=== PATIENT | male | born 1955 | race Caucasian/White ===

== ENCOUNTER → 2017-04-16 | Outpatient (CLI) | payer OTHER | END | disposition home or self-care (01) | LOC: GMAM 10:32 | PROVIDERS: ATTEND Family Medicine | DX: R97.20 Elevated prostate specific antigen [PSA] (principal) ==

== ENCOUNTER → 2019-03-29 | Outpatient (CLI) | payer OTHER ==
--- NOTE | 2019-03-29 14:48 | US ---
EXAM DESCRIPTION: Venous,Lower Extremity LT CLINICAL HISTORY: LOWER LIMB EDEMA COMPARISON: None Available. TECHNIQUE: Left lower extremity venous duplex FINDINGS: Doppler evaluation of the left lower extremity deep veins was performed. Normal color flow is seen in the common femoral, superficial femoral, profunda femoral and greater saphenous veins. Normal flow is seen in the popliteal vein and veins below the knee in the calf. Normal venous compressibility and flow augmentation. Edema in the soft tissues of the left lower extremity in the calf. IMPRESSION: Negative for evidence of deep venous thrombosis on left lower extremity venous Doppler sonogram. Electronically signed by: Michael Villanueva MD 03/29/2019 2:46 PM CDT
== END ==
LOC: US 09:03
PROVIDERS: ATTEND Family Medicine
DX: R60.9 Edema, unspecified (principal)

== ENCOUNTER 2020-05-18 23:03 | Observation (INO) | payer MEDICARE ==
[2020-05-18] MEDS ORDERED: METOPROLOL TARTRATE INJ 5 MG/5 ML VIAL IV ONE (23:18)
--- NOTE | 2020-05-18 23:43 | CT ---
EXAM: Head HISTORY: 64 years Male numbness arm COMPARISON: None TECHNIQUE: Contiguous axial images of the head were obtained from the skull base through the vertex without IV contrast followed by multiplanar reformats. This exam was performed according to our departmental dose-optimization program, which includes automated exposure control, adjustment of the mA and/or kV according to patient size and/or use of iterative reconstruction technique. FINDINGS: Brain volume is commensurate with patient age. No hydrocephalus. No midline shift, mass effect or abnormal extraaxial collection. Right anterior temporal pole encephalomalacia. Age-indeterminate hypoattenuation within the right posterior temporoparietal region. Chronic left internal capsule lacunar infarct. Orbital contents are unremarkable. The paranasal sinuses and mastoid air cells are well pneumatized. No acute calvarial abnormality. IMPRESSION: 1. Right posterior temporoparietal hypoattenuation, concerning for age-indeterminate infarct, either subacute or chronic. Recommend MRI for additional characterization. 2. Chronic left external capsule lacunar infarct. 3. Right anterior temporal lobe encephalomalacia. 4. No acute intracranial hemorrhage or mass effect. Electronically signed by: Aydin Acosta MD 05/18/2020 11:41 PM CDT
--- NOTE | 2020-05-18 23:47 | RAD ---
EXAM DESCRIPTION: Chest,1 View CLINICAL HISTORY: 64 years Male htn, left arm tingling COMPARISON: None. FINDINGS: The cardiomediastinal silhouette appears unremarkable. No consolidating infiltrates or pleural effusions. No pneumothorax. IMPRESSION: No acute abnormality is identified. Electronically signed by: Simona Soares MD 05/18/2020 11:46 PM CDT
[2020-05-19] MEDS ORDERED: ASPIRIN TABLET 325 MG TAB PO ONE
[2020-05-19] MEDS ORDERED: INSULIN LISPRO 100 UNITS/ML PEN SUBCU ONE (00:04)
[2020-05-19] MEDS ORDERED: LISINOPRIL 10 MG TAB PO ONE ×2 (01:21→11:09)
--- NOTE | 2020-05-19 01:26 | ED.PDOC ---
History of Present Illness - General Chief Complaint: Blood Pressure Problem Stated Complaint: dizzy, elevated BP Time Seen by Provider: 05/18/20 23:11 Source: patient Exam Limitations: no limitations - History of Present Illness Initial Comments: The patient is a 64-year-old male presented emergency room secondary to symptoms of dizziness along with a moderate headache and tingling in his left upper extremity primarily today. He reports that 3 days ago he had an episode that lasted about 30 minutes with difficulty with speech and with ambulating. It resolved on its own. He denies taking any blood thinners. He does have a cardiac history with apparently 1 stent according to him. He has not been compliant with his insulin recently. He reports that his blood pressures normally run high. He reports that he takes lisinopril at an unknown dose. Timing/Duration: unsure, constant, getting worse Severity: moderate Improving Factors: nothing Worsening Factors: nothing Associated Symptoms: headaches, malaise, weakness Allergies/Adverse Reactions: Allergies NO KNOWN ALLERGY Allergy (Verified 05/19/20 00:11) Review of Systems - Review of Systems Constitutional: States: malaise, weakness EENTM: States: other - Dizziness Respiratory: States: no symptoms reported Cardiology: States: no symptoms reported Gastrointestinal/Abdominal: States: no symptoms reported Genitourinary: States: no symptoms reported Musculoskeletal: States: no symptoms reported Skin: States: no symptoms reported Neurological: States: see HPI Endocrine: States: no symptoms reported All other Systems: No Change from Baseline Past Medical History (General) - Patient Medical History Hx Stroke: Yes - possible Hx Cardiac Disorders: Yes - stent Hx Hypertension: Yes Hx Diabetes: Yes Surgical History: cholecystectomy, other - Vaccination History Hx Tetanus, Diphtheria Vaccination: No Hx Influenza Vaccination: No Hx Pneumococcal Vaccination: No - Social History Hx Tobacco Use: No Hx Alcohol Use: No Family Medical History - Family History Father Family History: Unknown Physical Exam - Physical Exam General Appearance: Alert, Anxious, No apparent distress Eye Exam: bilateral normal Ears, Nose, Throat: hearing grossly normal - Chronically decreased bilaterally but normal for him, normal pharynx Neck: non-tender, supple Respiratory: lungs clear, normal breath sounds, no respiratory distress, no accessory muscle use Cardiovascular/Chest: normal peripheral pulses, regular rate, rhythm, no edema, other - Trace to +1 edema to bilateral lower extremities Peripheral Pulses: radial,right: 2+, radial,left: 2+ Gastrointestinal/Abdominal: non tender, soft Rectal Exam: deferred Back Exam: no vertebral tenderness Extremity: normal range of motion, no calf tenderness, normal capillary refill, pedal edema Neurologic: 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 Comments: Vital Signs - 24 hr 05/18/20 05/19/20 05/19/20 23:19 00:04 00:41 Temperature 96.7 F L Pulse Rate 78 78 66 Pulse Rate [ 74 71 67 left arm] Respiratory 28 H 28 H 24 Rate Blood Pressure 197/131 175/117 159/108 [Left Arm] O2 Sat by Pulse 99 99 99 Oximetry Initial blood pressure was 217/131 Progress - Progress Progress: 05/19/20 01:34 The patient is a 64-year-old male presented emergency room secondary to a hypertensive emergency that is symptomatic. He has also recently had a TIA. The patient was dosed with aspirin. For the hypertensive emergency he was given 10 mg of IV Lopressor along with 10 mg of oral amlodipine and 20 mg of oral lisinopril. Blood pressures have come down from the 2 teens down to the 150s on the systolic end and from the 130s to the 100s on the diastolic end. Symptomatically he has improved significantly. For work-up of the TIA, the patient will likely need an echocardiogram and carotid Dopplers at least along with following on telemetry monitoring. Again for now the patient has been given an aspirin. A discussion will need to be had with his primary care doctor whether or not a more aggressive antiplatelet medication is warranted in this patient. This patient has poorly controlled diabetes secondary primarily to noncompliance. He was given insulin here. This will need to be followed. aurea boyce [id number] Critical care time spent for hypertensive emergency is 35 minutes. - Results/Orders Results/Orders: EKG shows left axis deviation. There is significant QT prolongation. There is a right bundle block. There is likely an old inferior WV. Possibly old lateral WV versus additional bundle branch block. No previous EKG for comparison. Difficult to interpret secondary to multiple changes. Chest x-ray is clear. CT scan of the head shows right posterior temporal parietal hypoattenuation. Possibly an indeterminate age infarct. There is also a chronic left external capsule lacunar infarct. There is a right anterior temporal encephalomalacia. See report for details. Laboratory Tests 05/18/20 05/18/20 05/18/20 23:35 23:35 23:35 WBC 7.9 RBC 5.70 Hgb 16.7 Hct 48.9 MCV 85.8 MCH 29.4 MCHC 34.2 RDW 13.6 Plt Count 164 MPV 9.3 Absolute Neuts (auto) 5.10 Absolute Lymphs (auto) 1.90 Absolute Monos (auto) 0.70 Absolute Eos (auto) 0.10 Absolute Basos (auto) 0.10 Neutrophils % 64.5 Lymphocytes % 24.0 Monocytes % 8.9 Eosinophils % 1.5 Basophils % 1.1 PT 9.7 INR < 1.00 PTT (SP) 23.8 Sodium 135 Potassium 3.9 Chloride 103 Carbon Dioxide 24 Anion Gap 11.9 L BUN 23 H Creatinine 1.13 BUN/Creatinine Ratio 20.4 H POC Glucose Random Glucose 275 H Serum Osmolality 283.6 Calcium 9.0 Magnesium 1.7 L Total Bilirubin 1.0 AST 17 ALT 19 Alkaline Phosphatase 64 Creatine Kinase 80 CK-MB (CK-2) 2.7 CK-MB (CK-2) % Not Reportable Troponin I 0.03 B-Natriuretic Peptide 192.0 H Serum Total Protein 6.8 Albumin 4.1 Globulin 2.7 Albumin/Globulin Ratio 1.5 TSH 7.09 H 05/19/20 01:20 WBC RBC Hgb Hct MCV MCH MCHC RDW Plt Count MPV Absolute Neuts (auto) Absolute Lymphs (auto) Absolute Monos (auto) Absolute Eos (auto) Absolute Basos (auto) Neutrophils % Lymphocytes % Monocytes % Eosinophils % Basophils % PT INR PTT (SP) Sodium Potassium Chloride Carbon Dioxide Anion Gap BUN Creatinine BUN/Creatinine Ratio POC Glucose 275 H Random Glucose Serum Osmolality Calcium Magnesium Total Bilirubin AST ALT Alkaline Phosphatase Creatine Kinase CK-MB (CK-2) CK-MB (CK-2) % Troponin I B-Natriuretic Peptide Serum Total Protein Albumin Globulin Albumin/Globulin Ratio TSH Departure - Departure Clinical Impression: Hypertensive emergency, Uncontrolled insulin dependent diabetes mellitus, TIA (transient ischemic attack) Disposition: Admit Patient Condition: Fair Departure Forms: ED Discharge - Pt. Copy, Patient Portal Self Enrollment Instructions: DI for High Blood Pressure Referrals: Arnav Boyce MD [Primary Care Provider] - 1-2 Weeks Decision To Admit - Decistion To Admit Decision to Admit Reason: Medical Nature Decision to Admit Date: 05/19/20 Decision to Admit Time: 01:36
[2020-05-19] MEDS ORDERED: SODIUM CHLORIDE 0.9% (FLUSH) 10 ML SYG IV PRN (09:19)
[2020-05-19] MEDS ORDERED: IV SET AND CAP CHANGE INJ INJ SCH (09:30)
[2020-05-19 10:10] VITALS: BP 126/76; TEMP 98.2; O2SAT 95
[2020-05-19] MEDS ORDERED: amLODIPine BESYLATE 5 MG TAB PO ONE ×2 (11:09)
[2020-05-19] MEDS ORDERED: metFORMIN HCL 500 MG TAB PO ONE (11:11)
--- NOTE | 2020-05-19 15:08 | SSS ---
SUPERVISING PHYSICIAN: Reji Malone M.D. DISCHARGE DIAGNOSES: 1. Hypertensive crisis that has resolved with Amlodipine, Lisinopril and Metoprolol. 2. Transient ischemic attack versus cerebrovascular accident. Symptoms started approximately 3 to 4 days prior to his Emergency Room visit. No residual deficits at this time. 3. Poor medical compliance as the patient is a poor historian and has taken no medications in over a year. 4. Diabetes mellitus type 2. 5. Hypertension. 6. Hypothyroidism presently on no medications and no known diagnoses. HISTORY OF PRESENT ILLNESS: This is a 64 year-old male patient who came to the Emergency Room after he had symptoms of dizziness with a headache and tingling in his left arm. Approximately 3 days prior to his admission to the Emergency Room, he was talking to his grandson and it was difficult for him to communicate. He had difficulty speaking. After 30 minutes it resolved, although his left arm continued to tingle. He did say he was diabetic and had high blood pressure, but he had not taken his medications in over a year. He is on insulin but he ran out of the needles. He does see Dr. Coker but has not seen him in quite some time. He was given an aspirin in the Emergency Room. His initial vital signs show temperature 96.7, heart rate 78, blood pressure 197/131, repeat blood pressure was 202/131, respiratory rate 28, O2 saturation was 99% on room air. Lab studies were done. CBC was unremarkable. Electrolytes were basically within normal limits but his glucose was 275. BUN 23, creatinine 1.13, magnesium 1.7, BNP was slightly elevated at 192 and TSH was 7.09. Chest x-ray showed no abnormal acute abnormalities identified. Head CT showed: 1. Right posterior temporoparietal hypoattenuation concerning for age indeterminate infarct, either subacute or chronic. 2. Chronic left external capsule lacunar infarct. 3. Right anterior temporal lobe encephalomalacia. 4. No acute intracranial hemorrhage or mass effect. He was given some IV Metoprolol as well as some Lisinopril and Amlodipine. He was also given an aspirin. Neurologically he was intact. I was called for hospital admission. HOSPITAL COURSE: The patient's blood pressure was controlled with Amlodipine and Lisinopril. We never received an actual list of his medications other than he did take Metformin. His blood pressure did come down to 168/93 and today on discharge it was 126/76. There were no neurologic deficits. Today, he will be discharged home with close followup with Dr. Coker. PAST MEDICAL HISTORY: 1. Diabetes mellitus type 2. 2. Hypertension. 3. Coronary artery disease with stent placement in the past. PAST SURGICAL HISTORY: 1. Cholecystectomy. 2. Cardiac stent. OUTPATIENT MEDICATIONS: Unavailable other than Metformin. ALLERGIES: NO KNOWN DRUG ALLERGIES. FAMILY HISTORY: Unknown. SOCIAL HISTORY: He lives in [place]. He denied any tobacco, ETOH or illicit drug use. REVIEW OF SYSTEMS: GENERAL: Positive for fatigue. Negative for fever, chills or weight changes. HEENT: Negative for sinus symptoms, ear pain, vision changes or sore throat. RESPIRATORY: Negative for wheezing, coughing or shortness of breath. CARDIAC: Negative for chest pain, palpitations or tachycardia. GASTROINTESTINAL: Negative for nausea, vomiting, diarrhea or constipation. GENITOURINARY: Negative for hematuria, dysuria or polyuria. MUSCULOSKELETAL: Negative for arthralgias, myalgias. SKIN: Negative for lesions or rashes. NEUROLOGIC: As per the History of Present Illness. PHYSICAL EXAMINATION: VITAL SIGNS: Temperature 98.2, heart rate 68, blood pressure 126/76, respiratory rate 16, O2 saturation 95% on room air. GENERAL: This is a 64 year-old male patient who is sitting in his hospital bed. He is in no acute distress. HEENT: Normocephalic, atraumatic. Pupils are equal and reactive. Oropharynx is clear. NECK: Supple without mass. RESPIRATORY: Essentially clear to auscultation bilaterally. CHEST: There is equal rise and fall of the chest with inspiration and expiration. CARDIOVASCULAR: Regular rate and rhythm. GASTROINTESTINAL: Abdomen is soft, nondistended, nontender. Bowel sounds are positive. BACK: Exam is deferred. RECTAL: Exam is deferred. EXTREMITIES: No cyanosis, clubbing or edema. NEUROLOGIC: Awake, alert and oriented times three. Cranial nerves II-XII are grossly intact as tested. SKIN: Warm and dry. LABORATORY: Labs and films are as per the History of Present Illness. DISCHARGE PLAN: The patient will be discharged home in stable condition. He is to begin taking his medications as they were ordered by Dr. Coker. We are actually giving him some needles for his insulin. He is to call Dr. Coker's office on Wednesday and get a followup appointment. At that time may consider him being put on thyroid medicine and having an MRI of his brain done. Again, I did not send him home on any medications and I stressed the importance of him taking medication as instructed. He is to take a regular aspirin daily. He is to resume a diabetic diet and increase his activity as tolerated. He is to return to the hospital or followup with Dr. Coker for any problems or complications. DISCHARGE MEDICATIONS: 1. Metformin. 2. Unknown blood pressure medications. 3. An aspirin daily. #[id number] [facility]
[2020-05-19] MEDS ORDERED: SODIUM CHLORIDE 0.9% (FLUSH) 10 ML SYG IV SCH (21:00)
== END 2020-05-19 12:35 | disposition home or self-care (01) ==
LOC: ER 23:03 → MS 05-19 02:06
PROVIDERS: ADMIT Nurse Practitioner Acute Care; ATTEND Nurse Practitioner Acute Care
DX: I16.1 Hypertensive emergency (principal); I10 Essential (primary) hypertension; E11.65 Type 2 diabetes mellitus with hyperglycemia; E03.9 Hypothyroidism, unspecified; R20.2 Paresthesia of skin; R47.89 Other speech disturbances; R42 Dizziness and giddiness; R51 Headache; I25.10 Atherosclerotic heart disease of native coronary artery without angina pectoris; G93.89 Other specified disorders of brain; I45.10 Unspecified right bundle-branch block; Z91.14 Patient's other noncompliance with medication regimen; Z79.84 Long term (current) use of oral hypoglycemic drugs; Z95.5 Presence of coronary angioplasty implant and graft; Z90.49 Acquired absence of other specified parts of digestive tract
CPT/HCPCS: 96374; 96372; J1815; 82553; 80053; 82948; 85025; 82550; 83735; 85730; 85610; 84443; 84484; 83880; 71045; 70450; 99285

== ENCOUNTER 2020-08-10 18:19 | Inpatient (IN) | payer MEDICARE ==
[2020-08-10] MEDS ORDERED: FUROSEMIDE INJ 40 MG/4 ML VIAL IV ONE ×3 (18:33→19:20)
--- NOTE | 2020-08-10 18:34 | ED.PDOC ---
History of Present Illness - General Chief Complaint: Respiratory Problem Stated Complaint: states worsened in the last two days Time Seen by Provider: 08/10/20 18:20 Source: patient Exam Limitations: no limitations Additional Information: The patient is a 64-year-old male that presents to the emergency department with complaints of trouble breathing hypertension and bilateral lower extremity edema. He states he has had lower extremity edema for last couple of weeks but has worsened in the last 2 days. He denies any fevers or chills denies any cough and runny nose any congestion denies a history of COPD or asthma. States that he had a myocardial infarction a couple of years ago but has not been diagnosed with heart failure - History of Present Illness Timing/Duration: days Severity: moderate Activities at Onset: none Possible Cause: unknown cause Improving Factors: nothing Worsening Factors: nothing Associated Symptoms: edema Allergies/Adverse Reactions: Allergies NO KNOWN ALLERGY Allergy (Verified 08/10/20 18:47) Review of Systems - Review of Systems Constitutional: Denies: chills, fever EENTM: Denies: see HPI, eye pain, double vision, ear pain, ear discharge, nose pain, mouth swelling Respiratory: States: short of breath. Denies: see HPI, cough, orthopnea, stridor, wheezing Cardiology: States: edema. Denies: chest pain, palpitations, syncope Gastrointestinal/Abdominal: Denies: abdominal pain, constipation, diarrhea, nausea Musculoskeletal: Denies: back pain, gout, joint pain, joint swelling, muscle pain Skin: Denies: change in color, dryness, lesions, rash, other Neurological: States: no symptoms reported. Denies: anxiety, depressed, emotional problems, numbness, paresthesia, pre-existing deficit, seizure, tingling, tremors, weakness Endocrine: Denies: see HPI, excessive sweating, flushing Hematologic/Lymphatic: Denies: anemia All other Systems: Reviewed and Negative Past Medical History (General) - Patient Medical History Hx Seizures: No Hx Stroke: Yes - possible TIA last 2 days Hx Asthma: No Hx of COPD: No Hx Cardiac Disorders: Yes - stent Hx Congestive Heart Failure: Yes Hx Pacemaker: No Hx Hypertension: Yes Hx Diabetes: Yes Hx MRSA: No - Vaccination History Hx Tetanus, Diphtheria Vaccination: No Hx Influenza Vaccination: No Hx Pneumococcal Vaccination: No - Social History Hx Tobacco Use: No Hx Alcohol Use: No Hx Substance Use: No Hx Physical Abuse: No Hx Emotional Abuse: No Family Medical History - Family History Father Family History: Unknown Physical Exam - Physical Exam General Appearance: Alert, Comfortable Eyes, Ears, Nose, Throat Exam: PERRL/EOMI, TMs normal, pharynx normal Neck: non-tender, full range of motion, supple, normal inspection Respiratory: chest non-tender, lungs clear, no respiratory distress, no accessory muscle use, crackles, rales - bilateral Cardiovascular/Chest: normal peripheral pulses, regular rate, rhythm, no edema, no gallop, no JVD, no murmur Peripheral Pulses: radial,right: 2+, radial,left: 2+, dorsalis pedis,right: 2+, dorsalis pedis,left: 2+ Gastrointestinal/Abdominal: normal bowel sounds, non tender, soft Extremity: pedal edema - bilateral +3 pedal edema 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 On physical examination +3 bilateral lower extremity edema. Shortness of breath and rales and respiratory examination. Chest x-ray shows bilateral pulmonary effusions EKG shows nonspecific ST segment changes concerning for chronic ischemia. 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 08/10/20 18:51 - EKG/XRAY/CT EKG: Sinus, nonspecific ST T wave Chg, Unchanged from XRAY: chest - bilateral pulmonary effusions and Pul edema Departure - Departure Clinical Impression: Hypertensive urgency, CHF (congestive heart failure), Hypomagnesemia, Diabetes Time of Disposition: 19:09 Disposition: Admit Patient Condition: Fair Departure Forms: ED Discharge - Pt. Copy, Patient Portal Self Enrollment Activity: other - ambulate Referrals: Arnav Coker MD [Primary Care Provider] - 1-2 Weeks Critical Care Note - Critical Care Note Total Time (mins): 20
--- NOTE | 2020-08-10 19:10 | RAD ---
EXAM DESCRIPTION: Chest,1 View 08/10/2020 7:08 PM CDT CLINICAL HISTORY: 64 years, Male, sob COMPARISON: 05/18/2020 FINDINGS: Single view of the chest was obtained portable. Prior films were compared. External EKG leads within the [id number] limits diagnosis. The cardiomediastinal silhouette demonstrate to be unremarkable. The heart is nonenlarged. Infiltration of the cardiac silhouette is most likely related to cardiac fat pad. There is questionable blunting right and left lateral CP angles with this is related to decreased lung volume and/or trace of bilateral pleural effusions could be of consideration. No areas of consolidation or masses are seen. The rest of the soft tissue and bony structures demonstrate to be unremarkable. IMPRESSION: SLIGHT DECREASED LUNG VOLUME. QUESTIONABLE MILD PENETRATION OF THE CARDIAC SILHOUETTE WITH AT THIS IS RELATED TO CARDIAC MEGALY AND/OR PERICARDIAL FAT PADS COULD BE OF CONSIDERATION. QUESTIONABLE MINIMAL BLUNTING BILATERAL CP ANGLE SUGGESTING TRACE OF PLEURAL EFFUSIONS. Electronically signed by: Douglas Ames MD 08/10/2020 7:09 PM CDT
[2020-08-10] MEDS ORDERED: MAGNESIUM SULFATE PREMIX 2GM 2 GM in PREMIX BAG 1 BAG IVPB ONE (19:32)
--- NOTE | 2020-08-10 20:57 | HP ---
SUPERVISING PHYSICIAN: Reji Malone M.D. CHIEF COMPLAINT: Shortness of breath. HISTORY OF PRESENT ILLNESS: This is a 64 year-old male patient who presented to the Emergency Room with progressive shortness of breath that had worsened over the last several days. He also had some significant lower extremity edema +3 bilaterally in the Emergency Room. He has had the swelling in his legs for several weeks. He also is a very poor historian and could not tell me how long he had been short of breath but it had worsened so bad over the last couple of days that he came to the Emergency Room. He is very poorly compliant with his medications. He does change his story quite frequently about when his last time he took his medications or even what medications he is on. Supposedly, he is on Tresiba, metformin, lisinopril and Plavix but his story has changed several times. In the Emergency Room, his initial vital signs showed a blood pressure of 187/123 with a heart rate of 97, temperature 98.3, respiratory rate 24, oxygen saturation 90 to 92%. He was visibly dyspneic. He was given Lasix x2 in the Emergency Room as well as some magnesium. He continued to be very short of breath. Lab studies showed a CBC that was unremarkable. His electrolytes were basically within normal limits with the exception of his magnesium was 1.6. BNP was 368. He denied having any diagnoses of congestive heart failure. His blood sugar ran between 200 and 225. He was admitted to the hospital in stable condition, although he was in mild respiratory distress. PAST MEDICAL HISTORY: 1. Hypertension. 2. TIAs. 3. Poor medical compliance. 4. Diabetes mellitus type 2. 5. Hypothyroidism. PAST SURGICAL HISTORY: 1. Coronary stent placement. 2. Cholecystectomy. OUTPATIENT MEDICATIONS: Possibly Triceba, metformin, lisinopril and Plavix, although patient is not taking his medications with any consistently. ALLERGIES: NO KNOWN DRUG ALLERGIES. SOCIAL HISTORY: He lives in [place]. He denied any tobacco, ETOH or illicit drug use. REVIEW OF SYSTEMS: GENERAL: Positive for fatigue. Negative for fever, chills or weight changes. HEENT: Negative for sinus symptoms, ear pain, vision changes or sore throat. RESPIRATORY: Positive for shortness of breath and coughing, negative for wheezing. CARDIAC: Negative for chest pain, palpitations or tachycardia. GASTROINTESTINAL: Negative for nausea, vomiting, diarrhea or constipation. GENITOURINARY: Negative for hematuria, dysuria or polyuria. MUSCULOSKELETAL: Negative for arthralgias, myalgias. SKIN: Negative for lesions or rashes. NEUROLOGIC: Negative for headaches, seizures or weakness. PHYSICAL EXAMINATION: VITAL SIGNS: Temperature 97.9, heart rate 76, blood pressure 159/100, respiratory rate 20, O2 saturation 97% on 2 liters nasal cannula. GENERAL: This is a 64 year-old obese patient who is sitting in his hospital bed. He is in no acute distress. HEENT: Normocephalic, atraumatic. Pupils are equal and reactive. Oropharynx is clear. NECK: Supple without mass. There is no discernible jugular venous distention. RESPIRATORY: A few scattered rales throughout all lung augustin. CHEST: There is equal rise and fall of the chest with inspiration and expiration. CARDIOVASCULAR: Regular rate and rhythm. GASTROINTESTINAL: Abdomen is soft, nondistended, nontender. Bowel sounds are positive. EXTREMITIES: No cyanosis, clubbing, he does have +2 pedal edema bilaterally. Pedal pulses are +2 bilaterally. BACK: Exam deferred. RECTAL: Exam deferred. NEUROLOGIC: Awake, alert and oriented times three. Cranial nerves II-XII are grossly intact as tested. SKIN: Warm, pink and dry. FOLLOWUP LABORATORY: CBC is unremarkable. Metabolic panel shows electrolytes that are basically within normal limits with the exception of his magnesium is still low at 1.6. He has an elevated bilirubin at 1.5. Liver enzymes are within normal limits. Serum total protein is slightly low at 6.3. Covid PCR is negative. Chest x-ray shows stable mild vascular congestion, stable small bilateral pleural effusion. All other labs and films have been reviewed via the EMR IMPRESSION: 1. Congestive heart failure that has unknown etiology with acute exacerbation. There is no echocardiogram to review. He was admitted with marked dyspnea with a respiratory rate of 24 and heart rate 97. 2. Hypertensive crisis with initial blood pressure of 157/123. 3. Diabetes mellitus poorly controlled. His A1C is 9.3. 4. Poor medical compliance, very erratic to medication compliance.. 5. Hypertension. 6. Hypothyroidism. 7. Hyperbilirubinemia. PLAN: The patient is being admitted to the hospital. He has been started on congestive heart failure guidelines and he will continue to get diuresed over the next day or so. He will have an echocardiogram for in the morning. I have put him on lisinopril as well as metoprolol.. Initially, he received some Clonidine for his hypertension, will leave that. He can be controlled with his blood pressure medications, also put him on sliding scale insulin with Levemir insulin 10 units at night. We discussed the importance of medical compliance and close followup with his primary care physician. He did voice understanding but I am not sure he will followup as recommended. I also ordered a TSH for in the morning. He may need to be on thyroid medications. Will also follow his bilirubin trends, they were normal on admission. I will known to as needed. #[id number] MTDD
[2020-08-10] MEDS ORDERED: cloNIDine HCL 0.1 MG TAB ONE (21:28)
[2020-08-10] MEDS ORDERED: NITROGLYCERIN 0.4 MG 25 EA TAB SL PRN (22:13)
[2020-08-10] MEDS ORDERED: LEVALBUTEROL NEBS 1.25 MG/3 ML VIAL INH PRN (22:13)
[2020-08-10] MEDS ORDERED: SODIUM CHLORIDE 0.9% (FLUSH) 10 ML SYG IV PRN (22:13)
[2020-08-10] MEDS ORDERED: ONDANSETRON INJ 4 MG/2 ML VIAL IV PRN (22:13)
[2020-08-10] MEDS ORDERED: ACETAMINOPHEN 325 MG TAB PO PRN (22:13)
[2020-08-10] MEDS ORDERED: IV SET AND CAP CHANGE INJ INJ SCH (22:30)
[2020-08-11] MEDS ORDERED: cloNIDine HCL 0.1 MG TAB PO ONE (02:01)
[2020-08-11] MEDS: PANTOPRAZOLE SODIUM IV 40 MG VIAL IV SCH (05:50)
[2020-08-11] MEDS: SODIUM CHLORIDE 0.9% (FLUSH) 10 ML SYG IV SCH ×2 (08:43→20:06)
[2020-08-11] MEDS: FUROSEMIDE INJ 40 MG/4 ML VIAL IV SCH ×2 (08:43→17:26)
[2020-08-11] MEDS: LEVALBUTEROL NEBS 1.25 MG/3 ML VIAL INH SCH ×4 (08:54→20:15)
--- NOTE | 2020-08-11 08:55 | RAD ---
EXAM: XR Chest, 2 Views CLINICAL HISTORY: CHF TECHNIQUE: Frontal and lateral views of the chest. COMPARISON: 08/10/2020 FINDINGS: Lungs: Chronic obstructive changes present with slight redistribution of vessels to the lung bases. There is minimal atelectasis in the left base. Pleural space: Stable small pleural effusions. No pneumothorax. Heart: Stable enlargement of the cardiac shadow. Mediastinum: No abnormality noted. Bones/joints: No abnormality noted. Vasculature: Stable mild vascular congestion. IMPRESSION: Stable mild vascular congestion. Stable small bilateral pleural effusions. Electronically signed by: Randee Augustine MD 08/11/2020 8:53 AM SENIOR NET PROGRAMMER
[2020-08-11] MEDS ORDERED: MAGNESIUM SULFATE PREMIX 2GM 2 GM in PREMIX BAG 1 BAG IVPB ONE (09:47)
[2020-08-11] MEDS ORDERED: MAGNESIUM SULFATE PREMIX 2GM 50 ML IVPB ONE (11:13)
[2020-08-11] MEDS: LISINOPRIL 10 MG TAB PO SCH (11:43)
[2020-08-11] MEDS ORDERED: DEXTROSE 50% 25 GM/50 ML SYG IV PRN (12:30)
[2020-08-11] MEDS ORDERED: GLUCAGON INJ 1 MG VIAL SUBCU PRN (12:30)
[2020-08-11] MEDS: CLOPIDOGREL 75 MG TAB PO SCH (14:15)
[2020-08-11] MEDS: INSULIN LISPRO 100 UNITS/ML PEN SUBCU SCH ×2 (17:58→21:04)
[2020-08-11] MEDS ORDERED: ENOXAPARIN SODIUM 40 MG/0.4 ML SYG SUBCU ONE (19:16)
[2020-08-11] MEDS: metFORMIN HCL 500 MG TAB PO SCH (20:06)
[2020-08-11] MEDS: BIFIDOBACTERIUM INFANTIS 4 MG CAP PO SCH (20:06)
[2020-08-11] MEDS: METOPROLOL TARTRATE 25 MG TAB PO SCH (20:06)
[2020-08-11] MEDS ORDERED: INSULIN DETEMIR 100 UNITS/ML PEN SUBCU SCH (21:00)
[2020-08-12] MEDS: PANTOPRAZOLE SODIUM IV 40 MG VIAL IV SCH (06:06)
[2020-08-12] MEDS ORDERED: CLOPIDOGREL 75 MG TAB ONE (07:02)
[2020-08-12] MEDS ORDERED: FUROSEMIDE INJ 40 MG/4 ML VIAL ONE (07:02)
[2020-08-12] MEDS ORDERED: LISINOPRIL 10 MG TAB ONE (07:03)
[2020-08-12] MEDS: INSULIN LISPRO 100 UNITS/ML PEN SUBCU SCH ×2 (07:07→11:54)
[2020-08-12] MEDS ORDERED: LEVALBUTEROL NEBS 1.25 MG/3 ML VIAL NEB ONE (08:05)
[2020-08-12] MEDS ORDERED: metFORMIN HCL 500 MG TAB PO SCH (09:35)
[2020-08-12] MEDS: LEVALBUTEROL NEBS 1.25 MG/3 ML VIAL INH SCH ×2 (09:45→14:19)
[2020-08-12] MEDS: BIFIDOBACTERIUM INFANTIS 4 MG CAP PO SCH (09:45)
[2020-08-12] MEDS: METOPROLOL TARTRATE 25 MG TAB PO SCH (09:45)
[2020-08-12] MEDS: LISINOPRIL 10 MG TAB PO SCH (09:45)
[2020-08-12] MEDS: CLOPIDOGREL 75 MG TAB PO SCH (09:46)
[2020-08-12] MEDS: FUROSEMIDE INJ 40 MG/4 ML VIAL IV SCH (09:46)
[2020-08-12] MEDS: metFORMIN HCL 500 MG TAB PO SCH (09:50)
[2020-08-12] MEDS: SODIUM CHLORIDE 0.9% (FLUSH) 10 ML SYG IV SCH (09:54)
--- NOTE | 2020-08-12 11:34 | RAD ---
EXAM DESCRIPTION: Chest,2 Views CLINICAL HISTORY: chf COMPARISON: August 11, 2020 FINDINGS: Two-view chest x-ray shows enlargement of the cardiac silhouette without pulmonary vascular congestion. Moderate tortuosity the thoracic aorta stable. The lungs are normally aerated without acute infiltrate or consolidation. Blunting of the right costophrenic angle is less prominent than previous. The left costophrenic angles not included in [id number]. Moderate disc degenerative changes of the spine are seen. IMPRESSION: Stable cardiomegaly without pulmonary vascular congestion is seen on today's exam. Mild right pleural effusion and probably small left pleural effusion are decreased from previous exam. Electronically signed by: Garth Zaragoza MD 08/12/2020 11:32 AM RN INTERVENTIONAL
[2020-08-12 14:17] VITALS: BP 132/84; TEMP 97.5; O2SAT 96
[2020-08-12] MEDS ORDERED: POTASSIUM CHLORIDE 20 MEQ TAB ONE (14:53)
[2020-08-12] MEDS ORDERED: METOPROLOL TARTRATE 25 MG TAB ONE (14:54)
[2020-08-12] MEDS ORDERED: metFORMIN HCL 500 MG TAB PO ONE (16:00)
[2020-08-12] MEDS ORDERED: METOPROLOL TARTRATE 25 MG TAB PO ONE (16:00)
[2020-08-12] MEDS ORDERED: POTASSIUM CHLORIDE 20 MEQ TAB PO ONE (16:00)
[2020-08-12] MEDS ORDERED: ENOXAPARIN SODIUM 40 MG/0.4 ML SYG SUBCU SCH (21:00)
[2020-08-13] MEDS ORDERED: POTASSIUM CHLORIDE 20 MEQ TAB PO SCH (07:30)
[2020-08-13] MEDS ORDERED: FUROSEMIDE 40 MG TAB PO SCH (09:00)
--- NOTE | 2020-08-13 11:10 | DS ---
SUPERVISING PHYSICIAN: Anthony Flaherty MD ADMISSION DIAGNOSIS: 1. Congestive heart failure, unknown etiology with acute exacerbation. There is no echocardiogram to review. He was admitted with marked dyspnea with a respiratory rate of 24 and heart rate 97. 2. Hypertensive crisis with initial blood pressure of 157/123. 3. Diabetes mellitus poorly controlled. His hemoglobin A1c is 9.3. 4. Poor medical compliance, very erratic to medication compliance. 5. Hypertension. 6. Hypothyroidism. 7. Hyperbilirubinemia. DISCHARGE DIAGNOSIS: 1. Uncontrolled hypertension with urgency. 2. Decompensated congestive heart failure with current echocardiogram showing an ejection fraction of approximately 40% with final report pending. 3. Diabetes mellitus, poorly controlled with hemoglobin A1c 9.3. 4. Poor medical compliance with medication regimen. 5. History of hypothyroidism. 6. Hyperbilirubinemia, needing followup as an outpatient. REASON FOR HOSPITALIZATION: This is a 64 year-old male patient who presented to the Emergency Room with progressive shortness of breath that had worsened over the last several days. He also had some significant lower extremity edema +3 bilaterally in the Emergency Room. He has had the swelling in his legs for several weeks. He also is a very poor historian and could not tell me how long he had been short of breath but it had worsened so bad over the last couple of days that he came to the Emergency Room. He is very poorly compliant with his medications. He does change his story quite frequently about when his last time he took his medications or even what medications he is on. Supposedly, he is on Tresiba, metformin, lisinopril and Plavix but his story has changed several times. In the Emergency Room, his initial vital signs showed a blood pressure of 187/123 with a heart rate of 97, temperature 98.3, respiratory rate 24, oxygen saturation 90 to 92%. He was visibly dyspneic. He was given Lasix x2 in the Emergency Room as well as some magnesium. He continued to be very short of breath. Lab studies showed a CBC that was unremarkable. His electrolytes were basically within normal limits with the exception of his magnesium was 1.6. BNP was 368. He denied having any diagnoses of congestive heart failure. His blood sugar ran between 200 and 225. He was admitted to the hospital in stable condition, although he was in mild respiratory distress. LABORATORY: CBC was within normal limits with final white count of 5,800. Hemoglobin 15.7, hematocrit 46.3. RBC indices were all within normal limits. Platelet count 167,000. Coagulation studies showed normal PT/PTT. Labs on discharge showed normal electrolytes with potassium 3.6, BUN 30, creatinine 1.3. Blood sugars were poorly controlled between 188 and 370. Hemoglobin A1c 9.3. Magnesium 1.6. Total bilirubin 1 on discharge. Liver functions within normal limits. TSH 3.14. BNP 368. Troponins all within normal limits. MICROBIOLOGY: Respiratory panel was completed on admission which was negative for both COVID and influenza as well as all other bacterial and viral targets tested. RADIOLOGY: Echocardiogram with preliminary showing ejection fraction approximately 40-45% with that final report pending. He had multiple chest x- rays. Final chest x-ray on discharge showed stable cardiomegaly without pulmonary vascular congestion, mild right pleural effusion, probably a small left pleural effusion, decreased from previous exams. HOSPITAL COURSE: Mr. Baltazar was admitted for uncontrolled hypertension and congestive heart failure exacerbation. His initial vital signs on admission did show he had hypertensive urgency with initial blood pressure of 187/123, saturation 93% on room air, afebrile, heart rate 97. After treatment with Lasix and starting on blood pressure medicines in the form of lisinopril and metoprolol and Lasix, discharge vital signs showed blood pressure 132/84, heart rate 74, saturation 96% on room air. The patient showed good clinical improvement. He had an ambulation study and was able to maintain saturations greater than 93% on ambulation. Therefore, he was found clinically stable and not currently requiring any oxygen and able to followup as an outpatient for further management. PLAN: Mr. Baltazar was discharged on 08/12/20. He has an appointment to see Dr. Coker the day after discharge at 9:30. He has not gotten any of his medications in the past filled apparently for several months due to financial difficulties. On discharge, his medications minimal were started and prior to leaving the hospital, he was given scripts for multiple medications listed below. He was told follow a low sodium and diabetic diet. He was encouraged to increase his activity as tolerated. Medications were given to him in an electronically printed script. MEDICATION SCRIPTS: 1. Albuterol inhaler 1 to 2 puffs e.4h. as needed for shortness of breath, #1 inhaler, no refills. 2. Nitroglycerin 0.4 mg 1 sublingual every 5 minutes x3 as needed, #1 bottle, no refills. 3. Metformin 1000 mg twice a day, #60. 4. Potassium chloride 20 mEq daily, #30. 5. Lasix 40 mg daily, #30. 6. Metoprolol 25 mg twice daily, #60. 7. Plavix 75 mg daily, #30. 8. Lisinopril 10 mg daily, #30. Again, he was given all handwritten scripts with instructions to bring his scripts with him to his followup appointment so Dr. Coker could evaluate his current medication plan prior to getting multiple scripts filled due to his financial difficulties. He was given warnings to return to the ER should he have any concerning symptoms. He was given instructions on monitoring his weight daily and instructed should he have a drastic change more than 2 to [address] Coker's office or if having shortness of breath to go to the ER for evaluation. He was instructed on a low salt diet. He is to monitor his blood pressure at home and take a log with him on followup appointments. CONDITION ON DISCHARGE: Stable and improving. DISPOSITION: The patient was discharged home. #[id number] [facility]
== END 2020-08-12 15:46 | disposition home or self-care (01) | DRG 304 ==
LOC: ER 18:19 → MS 20:56 → OBSVTOIN 20:56
PROVIDERS: ADMIT Nurse Practitioner Acute Care; ATTEND Nurse Practitioner Family
DX: I16.0 Hypertensive urgency (principal); I50.43 Acute on chronic combined systolic (congestive) and diastolic (congestive) heart failure; I11.0 Hypertensive heart disease with heart failure; E83.42 Hypomagnesemia; E11.9 Type 2 diabetes mellitus without complications; E03.9 Hypothyroidism, unspecified; E66.9 Obesity, unspecified; Z91.14 Patient's other noncompliance with medication regimen; Z86.73 Personal history of transient ischemic attack (TIA), and cerebral infarction without residual deficits; Z95.5 Presence of coronary angioplasty implant and graft; Z90.49 Acquired absence of other specified parts of digestive tract; Z79.02 Long term (current) use of antithrombotics/antiplatelets; Z79.84 Long term (current) use of oral hypoglycemic drugs; Z79.899 Other long term (current) drug therapy; Z68.37 Body mass index [BMI] 37.0-37.9, adult

== ENCOUNTER → 2020-08-13 | Outpatient (CLI) | payer MEDICARE | LOC: GMAM 14:37 | PROVIDERS: ATTEND Family Medicine | DX: E03.9 Hypothyroidism, unspecified (principal); I50.30 Unspecified diastolic (congestive) heart failure ==